=== PATIENT | male | born 1965 | race Caucasian/White ===

== ENCOUNTER 2018-03-15 13:57 | Emergency (ER) | payer MEDICAID ==
[~2018-03-15] VITALS: Ht 177.8 cm; Wt 79.4 kg
[2018-03-15 14:09] VITALS: Ht 177.8 cm; Wt 79.4 kg
[2018-03-15 15:35] VITALS: BP 128/50
== END 2018-03-15 15:35 | disposition home or self-care (01) ==
LOC: ED 13:57
DX: L03.113 Cellulitis of right upper limb (principal)
CPT/HCPCS: 90715; J0696; Q0092